=== PATIENT | female | born 1985 | race Caucasian/White ===

== ENCOUNTER 2021-01-14 07:47 | Day surgery (SDC) | payer BC ==
[~2021-01-14 07:47] MED LIST: Dexamethasone 4 MG/ML 5 ML MDV ONE; Midazolam 1 MG/ML 2 ML SDV ONE; Ondansetron 4 MG/2 ML SDV ONE; Propofol 200 MG/20 ML SDV ONE; Rocuronium Bromide 50 MG/5 ML Syringe ONE; fentaNYL 250 MCG/5 ML SDV ONE
[2021-01-14] MEDS ORDERED: Scopolamine 1.5 MG Transdermal Patch ONE (08:10)
[2021-01-14] MEDS ORDERED: Naloxone 0.4 MG/ML SDV IVPUSH PRN (08:25)
[2021-01-14] MEDS ORDERED: HYDROmorphone 1 MG/ML Syringe IVPUSH PRN (08:25)
[2021-01-14] MEDS ORDERED: Ondansetron 4 MG/2 ML SDV IVPUSH PRN ×2 (08:25→12:20)
[2021-01-14] MEDS ORDERED: Metoclopramide 10 MG/2 ML SDV IVPUSH PRN (08:25)
[2021-01-14] MEDS ORDERED: Morphine 2 MG/ML SYRINGE IVPUSH PRN (08:25)
[2021-01-14] MEDS ORDERED: fentaNYL 100 MCG/2 ML SDV IVPUSH PRN (08:25)
[2021-01-14] MEDS ORDERED: Albuterol 0.083% 2.5 MG/3 ML Neb Soln NEB PRN (08:25)
--- NOTE | 2021-01-14 08:27 | PCM.PREANE ---
Preanesthetic Assessment - Anesthesia/Transfusion/Family Hx Anesthesia History: Prior Anesthesia Without Reaction Transfusion History: No Prior Transfusion(s) - Review of Systems General: No Symptoms Pulmonary: No Symptoms Cardiovascular: No Symptoms Gastrointestinal: No Symptoms Neurological: No Symptoms Other: Reports: None - Physical Assessment NPO Status Date: 01/14/21 NPO Status Time: 00:00 Vital Signs: Last Vital Signs Temp 97.2 F 01/14/21 08:12 Pulse 58 L 01/14/21 08:12 Resp 16 01/14/21 08:12 BP 135/88 01/14/21 08:12 Pulse Ox 98 01/14/21 08:12 Height: 5 ft 9 in Weight: 241 lb ASA Class: 2 Mental Status: Alert & Oriented x3 Airway Class: Mallampati = 1 Dentition: Reports: Normal Dentition ROM/Head Extension: Full Lungs: Clear to Auscultation, Normal Respiratory Effort Cardiovascular: Regular Rate, Regular Rhythm - Lab Values: Laboratory Last Values WBC 6.07 K/uL (4.0-11.0) 01/13/21 10:17 RBC 4.67 M/uL (4.30-5.90) 01/13/21 10:17 Hgb 13.6 g/dL (12.0-16.0) 01/13/21 10:17 Hct 40.5 % (36.0-46.0) 01/13/21 10:17 MCV 86.7 fL (80.0-98.0) 01/13/21 10:17 MCH 29.1 pg (27.0-32.0) 01/13/21 10:17 MCHC 33.6 g/dL (31.0-37.0) 01/13/21 10:17 RDW Std Deviation 42.1 fl (28.0-62.0) 01/13/21 10:17 RDW Coeff of Remy 13 % (11.0-15.0) 01/13/21 10:17 Plt Count 194 K/uL (150-400) 01/13/21 10:17 MPV 10.50 fL (7.40-12.00) 01/13/21 10:17 Nucleated RBC % 0.0 /100WBC 01/13/21 10:17 Nucleated RBCs # 0 K/uL 01/13/21 10:17 HCG, Qual NEGATIVE (NEG) 01/13/21 10:17 - Allergies Allergies/Adverse Reactions: Allergies Allergy/AdvReac Type Severity Reaction Status Date / Time No Known Allergies Allergy Verified 01/14/21 08:19 - Blood Blood Available: Yes Product(s) Available: PRBC - Acknowledgements Anesthesia Type Planned: General Anesthesia Pt an Appropriate Candidate for the Planned Anesthesia: Yes Alternatives and Risks of Anesthesia Discussed w Pt/Guardian: Yes Pt/Guardian Understands and Agrees with Anesthesia Plan: Yes PreAnesthesia Questionnaire HEENT History: Reports: Other (See Below) Other HEENT History: wears glassses Cardiovascular History: Reports: None Respiratory History: Reports: None Gastrointestinal History: Reports: None Genitourinary History: Reports: None ELECTRIC TRAIN DRIVER History: Reports: Dysfunctional Uterine Bleeding, Musculoskeletal History: Reports: Fracture Other Musculoskeletal History: fx arm as a child Neurological History: Reports: None Psychiatric History: Reports: None Endocrine/Metabolic History: Reports: Obesity/BMI 30+ Other Endocrine/Metabolic History: ACL repair -left knee Hematologic History: Reports: None Immunologic History: Reports: None Oncologic (Cancer) History: Reports: None Dermatologic History: Reports: None - Infectious Disease History Infectious Disease History: Reports: Chicken Pox - Past Surgical History Head Surgeries/Procedures: Reports: None HEENT Surgical History: Reports: None Cardiovascular Surgical History: Reports: None Respiratory Surgical History: Reports: None GI Surgical History: Reports: None Female Surgical History: Reports: Breast Biopsy, Section Endocrine Surgical History: Reports: None Neurological Surgical History: Reports: None Musculoskeletal Surgical History: Reports: Arthroscopic Knee Oncologic Surgical History: Reports: None Dermatological Surgical History: Reports: None - SUBSTANCE USE Tobacco Use Status *Q: Never Tobacco User Recreational Drug Use History: No - HOME MEDS Home Medications: Home Meds Tranexamic Acid [Lysteda] 650 mg PO TID PRN 01/09/21 [History] - CURRENT (IN HOUSE) MEDS Current Meds: Current Medications Lactated Ringer's (Ringers, Lactated) 1,000 mls @ 125 mls/hr IV ASDIRECTED UYEN Discontinued Medications Dexamethasone (Dexamethasone 4 Mg/Ml 5 Ml Mdv) Confirm Administered Dose 20 mg .ROUTE .STK-MED ONE Stop: 01/14/21 07:42 Fentanyl (Fentanyl 250 Mcg/5 Ml Sdv) Confirm Administered Dose 250 mcg .ROUTE .STK-MED ONE Stop: 01/14/21 07:41 Lidocaine HCl (Lidocaine 1% 5 Ml Sdv) Confirm Administered Dose 5 ml .ROUTE .ST-MED ONE Stop: 01/14/21 07:42 Midazolam HCl (Midazolam 1 Mg/Ml 2 Ml Sdv) Confirm Administered Dose 2 mg .ROUTE .STK-MED ONE Stop: 01/14/21 07:41 Ondansetron HCl (Ondansetron 4 Mg/2 Ml Sdv) Confirm Administered Dose 4 mg . ROUTE .ST-MED ONE Stop: 01/14/21 07:42 Propofol (Propofol 200 Mg/20 Ml Sdv) Confirm Administered Dose 200 mg .ROUTE .ST-MED ONE Stop: 01/14/21 07:41 Rocuronium [place] (Rocuronium [place] 50 Mg/5 Ml Syringe) Confirm Administered Dose 50 mg .ROUTE .ST-MED ONE Stop: 01/14/21 07:43 Scopolamine (Scopolamine 1.5 Mg Transdermal Patch) Confirm Administered Dose 1.5 mg .ROUTE .ST-MED ONE Stop: 01/14/21 08:11 Succinylcholine Chloride (Succinylcholine Chloride 200 Mg/10 Ml Syr) Confirm Administered Dose 200 mg .ROUTE .ST-MED ONE Stop: 01/14/21 07:43
[2021-01-14] MEDS ORDERED: Lactated Ringers 1,000 ML IV SCH (08:30)
[2021-01-14 09:03] LABS: BLOOD UREA NITROGEN,BUN 12 mg/dL (7.0-18.0); CARBON DIOXIDE,CO2 27.1 mmol/L (21.0-32.0); CHLORIDE,CL 104 mmol/L (98-107); GLUCOSE RANDOM 100 mg/dL (74-106); POTASSIUM,K 4.1 mmol/L (3.5-5.1); SODIUM,NA 141 mmol/L (136-145)
[2021-01-14] MEDS ORDERED: Methylene Blue 50 MG/10 ML Ampule ONE (09:14)
[2021-01-14] MEDS ORDERED: Bupivacaine 0.25% 10 ML SDV ONE (09:14)
[2021-01-14] MEDS ORDERED: Octyl 2-Cyanoacrylate 1 Tube ONE (09:14)
[2021-01-14] MEDS ORDERED: Fluorescein 5 ML Vial ONE (09:14)
[2021-01-14] MEDS ORDERED: fentaNYL 250 MCG/5 ML SDV ONE ×3 (09:48→11:41)
[2021-01-14] MEDS ORDERED: Propofol 200 MG/20 ML SDV ONE ×2 (09:48→11:41)
[2021-01-14] MEDS ORDERED: Ketamine 500 mg/10 ML MDV ONE (09:49)
[2021-01-14] MEDS ORDERED: Ketorolac 30 MG/ML SDV ONE (10:48)
[2021-01-14] MEDS ORDERED: Rocuronium Bromide 50 MG/5 ML Syringe ONE (10:48)
[2021-01-14] MEDS ORDERED: Ondansetron 4 MG/2 ML SDV ONE ×2 (10:48→11:22)
[2021-01-14] MEDS ORDERED: Sugammadex Sodium 200 MG/2 ML VIAL ONE (10:48)
[2021-01-14] MEDS ORDERED: Glycopyrrolate 0.2 MG/ML SDV ONE (10:48)
[2021-01-14] MEDS ORDERED: Dexamethasone 4 MG/ML 5 ML MDV ONE (10:48)
[2021-01-14] MEDS ORDERED: ePHEDrine 50 MG/ML SDV ONE (10:49)
[2021-01-14] MEDS ORDERED: Sodium Chloride 0.9% 20 ML ONE (10:49)
[2021-01-14] MEDS ORDERED: propofoL 100 ML ONE (11:21)
--- NOTE | 2021-01-14 11:37 | PCM.POSTAN ---
POST ANESTHESIA ASSESSMENT - MENTAL STATUS Mental Status: Alert, Oriented - VITAL SIGNS Vital Signs: Last Vital Signs Temp 97.2 F 01/14/21 08:12 Pulse 58 L 01/14/21 08:12 Resp 16 01/14/21 08:12 BP 135/88 01/14/21 08:12 Pulse Ox 98 01/14/21 08:12 - RESPIRATORY Respiratory Status: Respiratory Rate WNL, Airway Patent, O2 Saturation Stable - CARDIOVASCULAR CV Status: Pulse Rate WNL, Blood Pressure Stable - GASTROINTESTINAL GI Status: No Symptoms - POST OP HYDRATION Hydration Status: Adequate & Stable
--- NOTE | 2021-01-14 11:38 | PCM48HPAN ---
Post Anesthesia Note - EVALUATION WITHIN 48HRS OF ANESTHETIC Vital Signs in Normal Range: Yes Patient Participated in Evaluation: Yes Respiratory Function Stable: Yes Airway Patent: Yes Cardiovascular Function Stable: Yes Hydration Status Stable: Yes Pain Control Satisfactory: Yes Nausea and Vomiting Control Satisfactory: Yes Mental Status Recovered: Yes Vital Signs: Last Vital Signs Temp 97.2 F 01/14/21 08:12 Pulse 58 L 01/14/21 08:12 Resp 16 01/14/21 08:12 BP 135/88 01/14/21 08:12 Pulse Ox 98 01/14/21 08:12
[2021-01-14] MEDS ORDERED: Ketorolac 30 MG/ML SDV IVPUSH PRN (12:20)
[2021-01-14] MEDS ORDERED: Morphine 4 MG/ML Syringe IVPUSH PRN (12:20)
[2021-01-14] MEDS ORDERED: Acetaminophen/oxyCODONE 325-5 MG Tab PO PRN (12:20)
[2021-01-14] MEDS ORDERED: Promethazine 25 MG/ML SDV IM PRN (12:20)
--- NOTE | 2021-01-14 12:25 | PCM.OPNOTE ---
- General Post-Op/Procedure Note Date of Surgery/Procedure: 01/14/21 Operative Procedure(s): laparoscopically assisted vaginal hysterectomy, bilateral salpingectomy and cystoscopy Findings: Uterus 10 week size, bilateral tubes and ovaries appear normal. There is copious flow of bright green urine from bilateral ureteral orifices Pre Op Diagnosis: menorrhagia Post-Op Diagnosis: Same Anesthesia Technique: General ET Tube Primary Surgeon: Melody Mota Secondary Surgeon: Sunita Romo Anesthesia Provider: Don Cottrell Seo Intern: Christiano Barrios Pathology: uterus and bilateral fallopian tubes. Fluid Replacement, Intraop: 2,500 Output, Urine Amount: 500 EBL in mLs: 350 Complications: None Known Condition: Good Free Text/Narrative:: Intake & Output 01/13/21 01/14/21 01/14/21 22:59 06:59 14:59 Intake Total 1999 Balance 1999
--- NOTE | 2021-01-14 19:44 | OR ---
SURGEON: Melody Mota M.D. DATE OF PROCEDURE: 01/14/2021 PREOPERATIVE DIAGNOSIS: Menorrhagia. POSTOPERATIVE DIAGNOSIS: Menorrhagia. PROCEDURES: Laparoscopically-assisted vaginal hysterectomy, bilateral salpingectomy, and cystoscopy. PRIMARY SURGEON: Melody Mota MD ELECTRIC SWITCH REPAIRER: Sunita Romo MD ANESTHESIA: General endotracheal. FLUIDS: 2500 mL of crystalloid. URINE OUTPUT: 500 mL. ESTIMATED BLOOD LOSS: 350 mL. FINDINGS: An 11-week size boggy uterus. The bilateral tubes and ovaries appeared normal. Upon cystoscopy, there was copious flow of bright green urine from bilateral ureteral orifices after IV fluorescein had been given. COMPLICATIONS: None known. DISPOSITION: Stable to Recovery. PATHOLOGY SPECIMENS: Uterus and bilateral fallopian tubes. BRIEF HISTORY: This is a 35-year-old female. She is G3, P3. She has had 1 prior vaginal delivery, 2 prior deliveries, and presents for a hysterectomy due to abnormal bleeding with adenomyosis. She has been offered alternatives including the Mirena IUD, which she declines, and she understands risks of the surgery including bleeding; infection; injury to bowel, bladder, blood vessels, ureters, or other organs; risk of thromboembolic event; risk of anesthesia; risk of change in sexual function. Understanding all these risks, she does desire to proceed. DESCRIPTION OF PROCEDURE: With the patient in dorsal lithotomy position, under adequate general endotracheal anesthesia, the perineum and vagina were prepped with Betadine. The abdomen was prepped with chlorhexidine and draped in usual fashion for abdominal surgery. SCDs were in place. Lama catheter had been placed and backfilled with 30 mL of dilute indigo carmine and an appropriate time-out was held. She had received 2 g of Ancef IV. After time-out was completed, bimanual examination revealed a mobile 12-week size uterus. Speculum was placed into the vagina. The ZUMI uterine manipulator was placed to the uterine fundus, and the speculum was removed. Press And Blow Machine Tender's gloves were changed, and then 3 mL of 0.25% Marcaine was injected inferior to the umbilicus. A vertical 5 mm incision was made with a scalpel. The anterior abdominal wall was elevated. Veress needle was inserted. Opening pressure was 5 mmHg. CO2 was insufflated to develop an adequate pneumoperitoneum of 15 mmHg. A 5 mm port was placed in the subumbilical site and laparoscope was placed into the abdominal cavity. There was no evidence of any trauma from the port placement sites. Two additional ports were placed 2 cm medial and cephalad from the anterior superior iliac spine on the right and the left. The uterus was elevated. The patient was placed in steep Trendelenburg position. Bilateral ureters were identified in the medial leaf of the broad ligament and were well below the field of dissection. The tip of the tubes was grasped and the mesosalpinx was cross clamped, cut, and ligated using the LigaSure proximally to the uterine cornu. The LigaSure was then utilized to proceed down the broad ligament to the round ligament which was doubly cauterized and cut. The anterior and posterior leafs of the broad ligaments were then entered and incised, skeletonizing the uterine vessels which were doubly cauterized and cut. The anterior leaf of the broad ligament was further opened and proceeding to the vesicouterine junction where the anterior peritoneum was entered. This being completed on the left and the right, the attention was then turned vaginally. The abdomen was desufflated. The laparoscope light was turned off. The bladder was released. A weighted speculum was placed posteriorly. A right angle retractor was placed anteriorly, and Saba tenaculum was used to grasp the cervix. The cervix was circumscribed using electrocautery and the vaginal mucosa was pushed away from the cervix. The posterior cul-de-sac was entered sharply. A Michael-Auvard speculum was placed posteriorly. Anterior cul-de-sac was entered sharply and a right angle retractor was placed anteriorly. The uterosacral ligaments were then clamped with Roney clamps, cut, and ligated using a Roney ligature of 2-0 Polysorb. Two additional pedicles were taken on the right and the left to complete the ligation of the broad ligament. The uterus and tubes and ovaries were then delivered vaginally. Hemostasis was established. There was one area near the left uterosacral ligament that was clamped and we ligated. The retained uterosacral ligaments were then ligated to the vaginal apices bilaterally. The vaginal mucosa was closed with a running lock suture of 0 Polysorb. The catheter was removed and IV fluorescein and Lasix had been given. A cystoscopy was performed, and there was excellent visualization of the bladder. Bilateral ureteral orifices were identified. There was copious flow of bright green urine from bilateral ureteral orifices. This being completed, the vagina was again inspected and was hemostatic. The Lama catheter had been replaced and crimping machine operator for metal's gloves were then changed. Attention was turned abdominally. The abdomen was reinsufflated. The pelvis was carefully irrigated and inspected. Again, at the left apex of the vagina, there was a small area of bleeding that was cauterized several times. It did not require a staple. After hemostasis was established due to the small area of bleeding, the hemostatic powder was placed and the abdomen was desufflated and inspected. The pelvis was inspected at 5 mmHg and remained hemostatic. Therefore, the abdomen was completely desufflated. The port sites were removed. The skin was closed with subcuticular suture of 3-0 Monocryl. Final sponge, needle, and instrument counts were reported as correct. There were no known complications. The patient was transferred to Recovery in good condition. ARIELLA / JETT /[id number]
[2021-01-14] MEDS: Acetaminophen/oxyCODONE 325-5 MG Tab PO PRN (20:15)
[2021-01-15 06:41] LABS: BLOOD UREA NITROGEN,BUN 10 mg/dL (7.0-18.0); CARBON DIOXIDE,CO2 26.5 mmol/L (21.0-32.0); CHLORIDE,CL 104 mmol/L (98-107); GLUCOSE RANDOM 111 mg/dL (74-106); POTASSIUM,K 4.1 mmol/L (3.5-5.1); SODIUM,NA 139 mmol/L (136-145)
--- NOTE | 2021-01-15 07:49 | PCM.SURGPN ---
- General Info Date of Service: 01/15/21 Date of Surgery/Procedure: 01/14/21 POD#: 1 Post-Op Diagnosis: Menorrhagia Functional Status: Reports: Pain Controlled, Tolerating Diet, Ambulating, Urinating - Review of Systems General: Reports: No Symptoms HEENT: Reports: No Symptoms Pulmonary: Reports: No Symptoms Cardiovascular: Reports: No Symptoms Gastrointestinal: Reports: No Symptoms Genitourinary: Reports: No Symptoms Musculoskeletal: Reports: No Symptoms Skin: Reports: No Symptoms Neurological: Reports: No Symptoms Psychiatric: Reports: No Symptoms - Patient Data Vitals - Most Recent: Last Vital Signs Temp 36.5 C 01/15/21 04:00 Pulse 69 01/15/21 04:00 Resp 18 01/15/21 04:00 BP 121/62 01/15/21 04:00 Pulse Ox 96 01/15/21 04:00 Weight - Most Recent: 109.316 kg I&O - Last 24 Hours: Intake & Output 01/14/21 01/15/21 01/15/21 22:59 06:59 14:59 Intake Total 1200 980 Output Total 350 1480 Balance 850 -500 Lab Results Last 24 Hrs: Laboratory Results - last 24 hr 01/14/21 01/14/21 01/15/21 Range/Units 08:23 08:23 05:20 WBC 12.19 H (4.0-11.0) K/uL RBC 3.88 L (4.30-5.90) M/uL Hgb 11.6 L (12.0-16.0) g/dL Hct 33.5 L (36.0-46.0) % MCV 86.3 (80.0-98.0) fL MCH 29.9 (27.0-32.0) pg MCHC 34.6 (31.0-37.0) g/dL RDW Std Deviation 42.0 (28.0-62.0) fl RDW Coeff of Remy 13 (11.0-15.0) % Plt Count 222 (150-400) K/uL MPV 11.10 (7.40-12.00) fL Neut % (Auto) 79.3 (48.0-80.0) % Lymph % (Auto) 14.5 L (16.0-40.0) % [place] % (Auto) 6.1 (0.0-15.0) % Eos % (Auto) 0.1 (0.0-7.0) % Baso % (Auto) 0.0 (0.0-1.5) % Neut # (Auto) 9.7 H (1.4-5.7) K/uL Lymph # (Auto) 1.8 (0.6-2.4) K/uL [place] # (Auto) 0.7 (0.0-0.8) K/uL Eos # (Auto) 0.0 (0.0-0.7) K/uL Baso # (Auto) 0.0 (0.0-0.1) K/uL Nucleated RBC % 0.0 /100WBC Nucleated RBCs # 0 K/uL Sodium 141 (136-145) mmol/L Potassium 4.1 (3.5-5.1) mmol/L Chloride 104 (98-107) mmol/L Carbon Dioxide 27.1 (21.0-32.0) mmol/L BUN 12 (7.0-18.0) mg/dL Creatinine 1.0 (0.6-1.0) mg/dL Est Cr Clr Drug Dosing 82.06 mL/min Estimated GFR (MDRD) > 60.0 ml/min Glucose 100 (74-106) mg/dL Calcium 9.4 (8.5-10.1) mg/dL Blood Type A POSITIVE Antibody Screen NEGATIVE 01/15/21 Range/Units 05:20 WBC (4.0-11.0) K/uL RBC (4.30-5.90) M/uL Hgb (12.0-16.0) g/dL Hct (36.0-46.0) % MCV (80.0-98.0) fL MCH (27.0-32.0) pg MCHC (31.0-37.0) g/dL RDW Std Deviation (28.0-62.0) fl RDW Coeff of Remy (11.0-15.0) % Plt Count (150-400) K/uL MPV (7.40-12.00) fL Neut % (Auto) (48.0-80.0) % Lymph % (Auto) (16.0-40.0) % [place] % (Auto) (0.0-15.0) % Eos % (Auto) (0.0-7.0) % Baso % (Auto) (0.0-1.5) % Neut # (Auto) (1.4-5.7) K/uL Lymph # (Auto) (0.6-2.4) K/uL [place] # (Auto) (0.0-0.8) K/uL Eos # (Auto) (0.0-0.7) K/uL Baso # (Auto) (0.0-0.1) K/uL Nucleated RBC % /100WBC Nucleated RBCs # K/uL Sodium 139 (136-145) mmol/L Potassium 4.1 (3.5-5.1) mmol/L Chloride 104 (98-107) mmol/L Carbon Dioxide 26.5 (21.0-32.0) mmol/L BUN 10 (7.0-18.0) mg/dL Creatinine 1.0 (0.6-1.0) mg/dL Est Cr Clr Drug Dosing 82.06 mL/min Estimated GFR (MDRD) > 60.0 ml/min Glucose 111 H (74-106) mg/dL Calcium 8.8 (8.5-10.1) mg/dL Blood Type Antibody Screen Med Orders - Current: Current Medications Lactated Ringer's (Ringers, Lactated) 1,000 mls @ 125 mls/hr IV ASDIRECTED [facility] Last Admin: 01/14/21 08:26 Dose: 125 mls/hr Documented by: Ketorolac Tromethamine (Ketorolac 30 Mg/Ml Sdv) 30 mg IVPUSH Q6H PRN PRN Reason: Pain (severe 7-10) Stop: 01/19/21 12:20 Morphine Sulfate (Morphine 4 Mg/Ml Syringe) 4 mg IVPUSH Q2H PRN PRN Reason: Pain (severe 7-10) Ondansetron HCl (Ondansetron 4 Mg/2 Ml Sdv) 4 mg IVPUSH ONETIME PRN PRN Reason: Nausea/Vomiting Ondansetron HCl (Ondansetron 4 Mg/2 Ml Sdv) 4 mg IVPUSH Q6H PRN PRN Reason: Nausea/Vomiting Oxycodone/Acetaminophen (Acetaminophen/Oxycodone 325-5 Mg Tab) 1 tab PO Q4H PRN PRN Reason: Pain (moderate 4-6) Last Admin: 01/14/21 20:15 Dose: 1 tab Documented by: Oxycodone/Acetaminophen (Acetaminophen/Oxycodone 325-5 Mg Tab) 2 tab PO Q4H PRN PRN Reason: Pain (moderate 4-6) Last Admin: 01/15/21 02:14 Dose: 2 tab Documented by: Promethazine HCl (Promethazine 25 Mg/Ml Sdv) 25 mg IM Q6H PRN PRN Reason: Nausea/Vomiting Discontinued Medications Albuterol (Albuterol 0.083% 2.5 Mg/3 Ml Neb Soln) 2.5 mg NEB ONETIME PRN PRN Reason: Wheezing Bupivacaine HCl (Bupivacaine 0.25% 10 Ml Sdv) Confirm Administered Dose 10 ml .ROUTE .STK-MED ONE Stop: 01/14/21 09:15 Dexamethasone (Dexamethasone 4 Mg/Ml 5 Ml Mdv) Confirm Administered Dose 20 mg .ROUTE .STK-MED ONE Stop: 01/14/21 07:42 Dexamethasone (Dexamethasone 4 Mg/Ml 5 Ml Mdv) Confirm Administered Dose 20 mg .ROUTE .STK-MED ONE Stop: 01/14/21 10:49 Droperidol (Droperidol 5 Mg/2 Ml Sdv) 0.625 mg IVPUSH ONETIME PRN PRN Reason: Nausea/Vomiting Ephedrine Sulfate (Ephedrine 50 Mg/Ml Sdv) Confirm Administered Dose 50 mg .ROUTE .STK-MED ONE Stop: 01/14/21 10:50 Fentanyl (Fentanyl 250 Mcg/5 Ml Sdv) Confirm Administered Dose 250 mcg .ROUTE .STK-MED ONE Stop: 01/14/21 07:41 Fentanyl (Fentanyl 100 Mcg/2 Ml Sdv) 50 mcg IVPUSH Q5M PRN PRN Reason: Pain (mild 1-3) Fentanyl (Fentanyl 250 Mcg/5 Ml Sdv) Confirm Administered Dose 250 mcg .ROUTE .STK-MED ONE Stop: 01/14/21 09:49 Fentanyl (Fentanyl 250 Mcg/5 Ml Sdv) Confirm Administered Dose 250 mcg .ROUTE .STK-MED ONE Stop: 01/14/21 09:50 Fentanyl (Fentanyl 250 Mcg/5 Ml Sdv) Confirm Administered Dose 250 mcg .ROUTE .STK-MED ONE Stop: 01/14/21 11:42 Fluorescein Sodium (Fluorescein 5 Ml Vial) Confirm Administered Dose 5 ml .ROUTE .[facility]-MED ONE Stop: 01/14/21 09:15 Glycopyrrolate (Glycopyrrolate 0.2 Mg/Ml Sdv) Confirm Administered Dose 0.2 mg .ROUTE .[facility]-MED ONE Stop: 01/14/21 10:49 Hydromorphone HCl (Hydromorphone 1 Mg/Ml Syringe) 1 mg IVPUSH Q10M PRN PRN Reason: Pain (moderate 4-6) Sodium Chloride (Normal Saline) Confirm Administered Dose 20 mls @ as directed .ROUTE .[facility]-MED ONE Stop: 01/14/21 10:50 Cefazolin Sodium/Dextrose (Ancef 2 Gm/50 Ml) Confirm Administered Dose 50 mls @ as directed .ROUTE .[facility]-MED ONE Stop: 01/14/21 10:50 Acetaminophen (Ofirmev 1000 Mg/100 Ml) Confirm Administered Dose 100 mls @ as directed .ROUTE .[facility]-MED ONE Stop: 01/14/21 10:50 Propofol (Diprivan 100 Ml) Confirm Administered Dose 100 mls @ as directed .ROUTE .[facility]-MED ONE Stop: 01/14/21 11:22 Ketamine HCl (Ketamine 500 Mg/10 Ml Mdv) Confirm Administered Dose 500 mg .ROUTE .[facility]-MED ONE Stop: 01/14/21 09:50 Ketorolac Tromethamine (Ketorolac 30 Mg/Ml Sdv) Confirm Administered Dose 30 mg .ROUTE .ST-MED ONE Stop: 01/14/21 10:49 Lidocaine HCl (Lidocaine 1% 5 Ml Sdv) Confirm Administered Dose 5 ml .ROUTE .ST-MED ONE Stop: 01/14/21 07:42 Methylene Blue (Methylene Blue 50 Mg/10 Ml Ampule) Confirm Administered Dose 50 mg .ROUTE .[facility]-MED ONE Stop: 01/14/21 09:15 Metoclopramide HCl (Metoclopramide 10 Mg/2 Ml Sdv) 10 mg IVPUSH ONETIME PRN PRN Reason: Nausea/Vomiting Midazolam HCl (Midazolam 1 Mg/Ml 2 Ml Sdv) Confirm Administered Dose 2 mg .ROUTE .ST-MED ONE Stop: 01/14/21 07:41 Morphine Sulfate (Morphine 2 Mg/Ml Syringe) 2 mg IVPUSH Q10M PRN PRN Reason: Pain (severe 7-10) Naloxone HCl (Naloxone 0.4 Mg/Ml Sdv) 0.1 mg IVPUSH ASDIRECTED PRN PRN Reason: Respiratory Depression Octyl Cyanoacrylate (Octyl 2-Cyanoacrylate 1 Tube) Confirm Administered Dose 1 applic .ROUTE .[employer]-MED ONE Stop: 01/14/21 09:15 Ondansetron HCl (Ondansetron 4 Mg/2 Ml Sdv) Confirm Administered Dose 4 mg .ROUTE .[employer]-MED ONE Stop: 01/14/21 07:42 Ondansetron HCl (Ondansetron 4 Mg/2 Ml Sdv) Confirm Administered Dose 4 mg .ROUTE .[employer]-MED ONE Stop: 01/14/21 10:49 Ondansetron HCl (Ondansetron 4 Mg/2 Ml Sdv) Confirm Administered Dose 4 mg .ROUTE .[employer]-[facility] ONE Stop: 01/14/21 11:23 Propofol (Propofol 200 Mg/20 Ml Sdv) Confirm Administered Dose 200 mg .ROUTE .[facility] ONE Stop: 01/14/21 07:41 Propofol (Propofol 200 Mg/20 Ml Sdv) Confirm Administered Dose 200 mg .ROUTE .[employer]-MED ONE Stop: 01/14/21 09:49 Propofol (Propofol 200 Mg/20 Ml Sdv) Confirm Administered Dose 200 mg .ROUTE .[employer]-MED ONE Stop: 01/14/21 11:42 Rocuronium Hardy (Rocuronium Hardy 50 Mg/5 Ml Syringe) Confirm Administered Dose 50 mg .ROUTE .[employer]-MED ONE Stop: 01/14/21 07:43 Rocuronium Hardy (Rocuronium Hardy 50 Mg/5 Ml Syringe) Confirm Administered Dose 50 mg .ROUTE .[facility]-MED ONE Stop: 01/14/21 10:49 Scopolamine (Scopolamine 1.5 Mg Transdermal Patch) Confirm Administered Dose 1.5 mg .ROUTE .[employer]-MED ONE Stop: 01/14/21 08:11 Last Admin: 01/14/21 19:55 Dose: Not Given Documented by: Succinylcholine Chloride (Succinylcholine Chloride 200 Mg/10 Ml Syr) Confirm Administered Dose 200 mg .ROUTE .[employer]-MED ONE Stop: 01/14/21 07:43 Sugammadex Sodium (Sugammadex Sodium 200 Mg/2 Ml Vial) Confirm Administered Dose 200 mg .ROUTE .[employer]-MED ONE Stop: 01/14/21 10:49 - Exam Wound/Incisions: Dressing Dry and Intact General: Alert, Oriented Neck: +2 Carotid Pulse wo Bruit Lungs: Normal Respiratory Effort GI/Abdominal Exam: Soft, Non-Tender, No Distention Extremities: Non-Tender, No Pedal Edema Skin: Warm, Dry, Intact Neurological: No New Focal Deficit Psy/Mental Status: Alert, Normal Affect, Normal Mood Sepsis Event Note - Evaluation Sepsis Screening Result: No Definite Risk - Focused Exam Vital Signs: Vital Signs Temp Pulse Resp BP Pulse Ox 01/15/21 04:00 36.5 C 69 18 121/62 96 01/15/21 00:00 36.7 C 63 18 116/68 96 01/14/21 20:00 36.8 C 75 19 132/75 98 - Problem List & Annotations (1) Menorrhagia SNOMED Code(s): 144668418 Code(s): N92.0 - EXCESSIVE AND FREQUENT MENSTRUATION WITH REGULAR CYCLE Status: Acute Current Visit: Yes Qualifiers: Menorrhagia type: with regular cycle Qualified Code(s): N92.0 - Excessive and frequent menstruation with regular cycle (2) Adenomyosis of uterus SNOMED Code(s): 687175842 Code(s): N80.0 - ENDOMETRIOSIS OF UTERUS Status: Acute Current Visit: Yes - Problem List Review Problem List Initiated/Reviewed/Updated: Yes - My Orders Last 24 Hours: Active Orders 24 hr Category Date Time Status Patient Status [ADT] Routine ADT 01/14/21 12:20 Active Antiembolic Devices [RC] PER UNIT ROUTINE Care 01/14/21 12:20 Active Blood Glucose Check, Bedside [RC] PRN Care 01/14/21 08:26 Active Notify Provider Intake and Out [RC] ASDIRECTED Care 01/14/21 12:20 Active Notify Provider Vital Signs [RC] ASDIRECTED Care 01/14/21 12:20 Active Overnight Pulse Oximetry [RC] Click to Edit Care 01/14/21 08:26 Active Oxygen Therapy [RC] ASDIRECTED Care 01/14/21 12:20 Active Oxygen Therapy [RC] PRN Care 01/14/21 08:26 Active RT Aerosol Therapy [RC] ASDIRECTED Care 01/14/21 08:26 Active RT BiPAP/CPAP [RC] ASDIRECTED Care 01/14/21 08:26 Active RT Incentive Spirometry [RC] Q2HWA Care 01/14/21 12:20 Active Ready for Discharge [RC] PER UNIT ROUTINE Care 01/15/21 06:48 Active Up With Assistance [RC] PER UNIT ROUTINE Care 01/14/21 12:20 Active Up ad Kiarra [RC] PER UNIT ROUTINE Care 01/14/21 12:20 Active Vital Signs [RC] Q4H Care 01/14/21 12:20 Active Vital Signs [RC] Q5M Care 01/14/21 08:26 Active Regular Diet [DIET] Diet 01/14/21 Dinner Active Acetaminophen/oxyCODONE [Percocet 325-5 MG] Med 01/14/21 12:20 Active 1 tab PO Q4H PRN Acetaminophen/oxyCODONE [Percocet 325-5 MG] Med 01/14/21 12:20 Active 2 tab PO Q4H PRN Ketorolac [Toradol] Med 01/14/21 12:20 Active 30 mg IVPUSH Q6H PRN Lactated Ringers [Ringers, Lactated] 1,000 ml Med 01/14/21 08:30 Active IV ASDIRECTED Morphine Med 01/14/21 12:20 Active 4 mg IVPUSH Q2H PRN Ondansetron [Zofran] Med 01/14/21 08:25 Active 4 mg IVPUSH ONETIME PRN Ondansetron [Zofran] Med 01/14/21 12:20 Active 4 mg IVPUSH Q6H PRN Promethazine [Phenergan] Med 01/14/21 12:20 Active 25 mg IM Q6H PRN Peripheral IV Discontinue [OM.PC] Routine Oth 01/14/21 12:20 Ordered Pulse Oximetry Continuous Monitoring [OM.PC] Routine Oth 01/14/21 08:26 Ordered Sequential Compression Device [OM.PC] Per Unit Routine Oth 01/14/21 12:20 Ordered Resuscitation Status Routine Resus Stat 01/14/21 12:20 Ordered Medication Orders Lactated Ringer's (Ringers, Lactated) 1,000 mls @ 125 mls/hr IV ASDIRECTED [facility] Last Admin: 01/14/21 08:26 Dose: 125 mls/hr Documented by: RAIMUNDO Ketorolac Tromethamine (Ketorolac 30 Mg/Ml Sdv) 30 mg IVPUSH Q6H PRN PRN Reason: Pain (severe 7-10) Stop: 01/19/21 12:20 Morphine Sulfate (Morphine 4 Mg/Ml Syringe) 4 mg IVPUSH Q2H PRN PRN Reason: Pain (severe 7-10) Ondansetron HCl (Ondansetron 4 Mg/2 Ml Sdv) 4 mg IVPUSH ONETIME PRN PRN Reason: Nausea/Vomiting Ondansetron HCl (Ondansetron 4 Mg/2 Ml Sdv) 4 mg IVPUSH Q6H PRN PRN Reason: Nausea/Vomiting Oxycodone/Acetaminophen (Acetaminophen/Oxycodone 325-5 Mg Tab) 1 tab PO Q4H PRN PRN Reason: Pain (moderate 4-6) Last Admin: 01/14/21 20:15 Dose: 1 tab Documented by: VIKI Oxycodone/Acetaminophen (Acetaminophen/Oxycodone 325-5 Mg Tab) 2 tab PO Q4H PRN PRN Reason: Pain (moderate 4-6) Last Admin: 01/15/21 02:14 Dose: 2 tab Documented by: VIKI Promethazine HCl (Promethazine 25 Mg/Ml Sdv) 25 mg IM Q6H PRN PRN Reason: Nausea/Vomiting - Assessment Assessment (Free Text/Narrative):: POD#1 after LAVH/bilateral salpingectomy and cystoscopy. Labs and vitals are normal, she has voided and ambulated, tolerating regular diet, stable for discharge. - Plan Plan (Free Text/Narrative):: Discharge instructions reviewed.
[2021-01-15] MEDS: Acetaminophen/oxyCODONE 325-5 MG Tab PO PRN (10:27)
== END 2021-01-15 09:40 | disposition home or self-care (01) ==
LOC: MW.SDS 07:47 → MW.MS 12:03 → MW.SDS 01-15 09:40
PROVIDERS: ATTEND Obstetrics & Gynecology
DX: D25.9 Leiomyoma of uterus, unspecified (principal); D64.9 Anemia, unspecified; E66.9 Obesity, unspecified; Z98.890 Other specified postprocedural states; Z79.899 Other long term (current) drug therapy
CPT/HCPCS: 36415; 58552; 80048; 84703; 85025; 85027; 86850; 86900; 86901; 88309; A9270; J0131; J0690; J1100; J1885; J2704; J3010; J3490; J7030; J7120; 00944; J0330; J2250; J2405